=== PATIENT | male | born 1955 | race Caucasian/White ===

== ENCOUNTER → 2017-04-23 | Outpatient (CLI) | payer OTHER ==
--- NOTE | 2017-04-23 13:17 | Diagnostic Imaging Report ---
PA and lateral views of the chest. INDICATION: Shortness of breath and dyspnea. No prior studies are available for comparison. FINDINGS: The heart is moderately enlarged. There is question of minimal vascular congestion. Mild horizontal opacity in the right lung base is probably related to atelectasis. No effusion or pneumothorax. Flattening of the diaphragms suggestive of hyperinflation. No significant effusion. No pneumothorax. IMPRESSION: Cardiomegaly with question of minimal vascular congestion. Mild opacity in the right lung base is probably atelectasis related. Dictated by: Dictated on workstation # [id number]
== END ==
LOC: RAD 10:29
PROVIDERS: ATTEND Nurse Practitioner Family
DX: I51.7 Cardiomegaly (principal); I63.9 Cerebral infarction, unspecified; R06.00 Dyspnea, unspecified; Z72.0 Tobacco use
CPT/HCPCS: 71020

== ENCOUNTER 2017-05-01 14:15 | Outpatient (CLI) | payer BC | END 2017-05-01 14:29 | disposition home or self-care (01) | LOC: SLEEP 14:15 | PROVIDERS: ATTEND Nurse Practitioner Family | DX: G47.10 Hypersomnia, unspecified (principal); G47.50 Parasomnia, unspecified ==

== ENCOUNTER → 2017-05-01 | Outpatient (CLI) | payer BC, OTHER ==
[~2017-05-01] MED LIST: RT-ALBUTEROL SULF 2.5 MG/3 ML PRE-MIX VIAL IH ONE
== END ==
LOC: RT 14:18
PROVIDERS: ATTEND Nurse Practitioner Family
DX: R06.00 Dyspnea, unspecified (principal); I63.9 Cerebral infarction, unspecified; Z72.0 Tobacco use
CPT/HCPCS: 94060; 94640; 94726; 94729

== ENCOUNTER 2017-06-19 17:45 | Emergency (ER) | payer OTHER ==
[~2017-06-19] VITALS: Ht 167.6 cm; Wt 122.5 kg
--- NOTE | 2017-06-19 18:18 | ED Chest Pain ---
General Chief Complaint: Chest Wall/Rib Pain Stated Complaint: RIB AND BACK PAIN Source: patient Exam Limitations: no limitations History of Present Illness Time seen by provider: 18:06 Initial Comments Patient has ER by private conveyance with chief complaint the past 3 weeks he has had progressively worsening, intermittent, sharp left upper quadrant/left lower chest pains worse on movement, deep inspiration or when he presses and on his side. He says he's had a history of stroke 3 months ago and started a cholesterol medicine at that time and is afraid that the cholesterol medicines causing his pain because he saw side effects can cause muscle thousand's. He uses Flexeril which did not help as well as Tylenol which did not help. The pain is intermittent however it is getting worse and more frequent. He said he went saw his doctor today for and they did not do any lab or workup but told him to the ER if it persists. He denies any nausea, fevers, chills, sweats however couple weeks ago he did have a bad cold and coughing up some phlegm but got over that about a week. He also recently stopped smoking 3 months ago but has continuously been coughing up some phlegm especially in the morning since that time. He does not feel his cough is any worse now than it was before his cold. He has no shortness of breath. Uses CPAP sleep at night. Is not routinely on oxygen at home. Allergies and Home Medications Allergies Coded Allergies: Penicillins (Unverified Allergy, Unknown, RASH, 05/01/17) Review of Systems Constitutional: chills, No diaphoresis, No fever, malaise EENTM: No Blurred Vision, No Double Vision Respiratory: Cough, Denies Shortness of Air, Denies Wheezing Cardiovascular: See HPI, Chest Pain Gastrointestinal: See HPI, Denies Abdomen Distended, Abdominal Pain, Denies Nausea, Denies Vomiting Genitourinary: Denies Burning, Denies Discharge Musculoskeletal: No back pain, No joint pain Skin: No pruritus, No rash Past Exruudl-Aunuhi-Wamhrw Hx Patient Social History Alcohol Use: Denies Use Recreational Drug Use: No Smoking Status: Former Smoker Former Smoker, Quit: Mar 04, 2017 Recent Foreign Travel: No Contact w/Someone Who Travel: No Physical Abuse: No Sexual Abuse: No Mistreated: No Fear: No Surgeries History of Surgeries: Yes (R ARM) Respiratory History of Respiratory Disorde: No Cardiovascular History of Cardiac Disorders: Yes Cardiac Disorders: High Cholesterol, Hypertension Neurological History of Neurological Disord: Yes Neurological Disorders: Stroke Genitourinary History of Genitourinary Disor: No Gastrointestinal History of Gastrointestinal Di: Yes Gastrointestinal Disorders: Gastroesophageal Reflux Musculoskeletal History of Musculoskeletal Dis: No Endocrine History of Endocrine Disorders: No Cancer History of Cancer: No Psychosocial History of Psychiatric Problem: No Suicide Risk Score: 0 Blood Transfusions History of Blood Disorders: No Physical Exam Vital Signs Vital Sign - Last 12Hours 06/19/17 18:08 Temp 97.6 Pulse 89 Resp 20 B/P (MAP) 154/92 (112) Pulse Ox 96 Capillary Refill : Less Than 3 Seconds General Appearance: No Apparent Distress, WD/WN HEENT: PERRL/EOMI, TMs Normal, Normal ENT Inspection, Pharynx Normal (oral mucosa is mildly dry) Neck: Full Range of Motion, Normal Inspection, Supple Respiratory: Lungs Clear, Normal Breath Sounds, No Accessory Muscle Use, No Respiratory Distress, Other (tenderness to palpation over anterior and midaxillary line left side ribs) Cardiovascular: Regular Rate, Rhythm, No Edema, Normal Peripheral Pulses Gastrointestinal: Normal Bowel Sounds, Non Tender, Soft, No Distended, No Guarding Neurologic/Psychiatric: Alert, Oriented x3 Skin: Normal Color, Warm/Dry Progress/Results/Core Measures Results/Orders Lab Results Laboratory Tests Test 06/19/17 18:55 Range/Units White Blood Count 7.7 4.3-11.0 10^3/uL Red Blood Count 5.13 4.35-5.85 10^6/uL Hemoglobin 16.3 13.3-17.7 G/DL Hematocrit 47 40-54 % Mean Corpuscular Volume 91 80-99 FL Mean Corpuscular Hemoglobin 32 25-34 PG Mean Corpuscular Hemoglobin Concent 35 32-36 G/DL Red Cell Distribution Width 13.0 10.0-14.5 % Platelet Count 161 130-400 10^3/uL Mean Platelet Volume 10.4 7.4-10.4 FL Neutrophils (%) (Auto) 66 42-75 % Lymphocytes (%) (Auto) 27 12-44 % Monocytes (%) (Auto) 5 0-12 % Eosinophils (%) (Auto) 2 0-10 % Basophils (%) (Auto) 0 0-10 % Neutrophils # (Auto) 5.1 1.8-7.8 X 10^3 Lymphocytes # (Auto) 2.1 1.0-4.0 X 10^3 Monocytes # (Auto) 0.4 0.0-1.0 X 10^3 Eosinophils # (Auto) 0.1 0.0-0.3 10^3/uL Basophils # (Auto) 0.0 0.0-0.1 10^3/uL Sodium Level 138 135-145 MMOL/L Potassium Level 3.9 3.6-5.0 MMOL/L Chloride Level 101 98-107 MMOL/L Carbon Dioxide Level 25 21-32 MMOL/L Anion Gap 12 5-14 MMOL/L Blood Urea Nitrogen 15 7-18 MG/DL Glucose Level 101 70-105 MG/DL Calcium Level 9.4 8.5-10.1 MG/DL Total Bilirubin 0.6 0.1-1.0 MG/DL Aspartate Amino Transf (AST/SGOT) 22 5-34 U/L Alanine Aminotransferase (ALT/SGPT) 33 0-55 U/L Alkaline Phosphatase 75 40-136 U/L Troponin I < 0.30 <0.30 NG/ML Total Protein 8.6 H 6.4-8.2 GM/DL Albumin 4.3 3.2-4.5 GM/DL My Orders Orders - PRATIMA MORA Cbc With Automated Diff (06/19/17 18:11) Comprehensive Metabolic Panel (06/19/17 18:11) Troponin I (06/19/17 18:11) Chest Pa/Lat (2 View) (06/19/17 18:11) Ekg Tracing (06/19/17 18:11) Vital Signs/I&O Vital Sign - Last 12Hours 06/19/17 18:08 Temp 97.6 Pulse 89 Resp 20 B/P (MAP) 154/92 (112) Pulse Ox 96 Progress Note : Time: 19:20 Progress Note His chest pain is consistent with pleuritic chest pain. It is unlikely that this represents pain is secondary to statin use although we will check a CK. Chest x-ray, troponin some basic labs and if it just seems pleuritic in nature probably steroids area and the chest x-ray does show some right-sided contralateral atelectasis versus infiltrates probably more likely to be atelectasis given his not taking deep breaths secondary to the. Chest pain. Since she cannot tolerate NSAIDs due to his history of stroke and Plavix we will give him some hydrocodone which will also help him by reducing his coughing sleep tonight. ECG Initial ECG Impression Date: Jun 19, 2017 Initial ECG Impression Time: 18:57 Initial ECG Rate: 80 Initial ECG Rhythm: Normal Sinus Initial ECG Intervals: Normal Initial ECG Impression: Normal Initial ECG Comparisson: No Previous ECG Available Comment Little motion artifact but no ST-T wave elevation or depression. Diagnostic Imaging Diagonstic Imaging: Xray Plain Films/CT/US/NM/MRI: chest Comments VIA [facility]. [place], [place] NAME: [facility] REC#: [id number] PT STATUS: REG ER : 1955 PHYSICIAN: PRATIMA MORA MD ADMIT DATE: 06/19/17/ER Draft Date of Exam:06/19/17 CHEST PA/LAT (2 VIEW) INDICATION: Chest pain. COMPARISON: 04/23/2017. EXAMINATION: Two views of the chest were obtained. FINDINGS: There is flattening of the diaphragms and suggestion of air trapping. Heart size is within normal limits, stable. No vascular congestion. No effusion or pneumothorax. There is likely infrahilar infiltrate on the right, suspicious for pneumonia. Radiographic followup recommended. IMPRESSION: Suspicion for infrahilar infiltrate right lower lobe. Radiographic followup recommended. There is chronic appearing air trapping superimposed with stable upper limits heart size and no overt failure pattern or pleural fluid. Dictated on workstation # [id number] Dict: 06/19/17 1829 Trans: 06/19/17 1834 [facility] [id number] Interpreted by: TRINA OSORIO Electronically signed by: Reviewed: Reviewed by Me Departure Impression Impression: Primary Impression: Anterior pleuritic pain Disposition: 01 HOME, SELF-CARE Condition: Stable Departure-Patient Inst. Decision time for Depature: 19:47 Referrals: NO,LOCAL PHYSICIAN (PCP/Family) Primary Care Physician Patient Instructions: Pleuritic Chest Pain (DC) Add. Discharge Instructions: Tylenol 1000 g every 8 hours, heating pads, stay mobile take deep breaths occasionally. Your pain is caused by irritation to the linings of your lung as evidenced by your examination and x-ray. You do not appear to have a pneumonia however a steroid will help bring down the inflammation since you cannot tolerate NSAIDs such as Aleve, ibuprofen etc. Take two tablets of prednisone daily for 5 days and expect some improvement in the first couple days. May take a few weeks to completely resolve. If you're having increased pain or your cough is keeping you from sleeping then you may use the hydrocodone one tablet every 6 hours as needed. Hycodan we'll increase your risk for constipation and make you drowsy so be careful with long road trips, or operating heavy machinery All discharge instructions reviewed with patient and/or family. Voiced understanding. Scripts Hydrocodone/Acetaminophen (Hydrocodon -Acetaminophen 5-325) 1 Each Tablet 1 EACH PO Q6H Y for BREAKTHROUGH PAIN, #12 TAB 0 Refills Prov: PRATIMA MORA 06/19/17 Prednisone (Prednisone) 20 Mg Tab 40 MG PO DAILY for 5 Days, #10 TAB 0 Refills Prov: PRATIMA MORA 06/19/17 PRATIMA MORA Jun 19, 2017 18:18
--- NOTE | 2017-06-19 18:35 | Diagnostic Imaging Report ---
INDICATION: Chest pain. COMPARISON: 04/23/2017. EXAMINATION: Two views of the chest were obtained. FINDINGS: There is flattening of the diaphragms and suggestion of air trapping. Heart size is within normal limits, stable. No vascular congestion. No effusion or pneumothorax. There is likely infrahilar infiltrate on the right, suspicious for pneumonia. Radiographic followup recommended. IMPRESSION: Suspicion for infrahilar infiltrate right lower lobe. Radiographic followup recommended. There is chronic appearing air trapping superimposed with stable upper limits heart size and no overt failure pattern or pleural fluid. Dictated by: Dictated on workstation # [id number]
[2017-06-19 19:17] LABS: BASOPHILS % (AUTO) 0 % (0-10); EOSINOPHILS # (AUTO) 0.1 10^3/uL (0.0-0.3); EOSINOPHILS % (AUTO) 2 % (0-10); LYMPHOCYTES # (AUTO) 2.1 X 10^3 (1.0-4.0); LYMPHOCYTES % (AUTO) 27 % (12-44); MEAN CORPUSCULAR HEMOGLOBIN 32 PG (25-34); MEAN CORPUSCULAR HGB CONC 35 G/DL (32-36); MEAN CORPUSCULAR VOLUME 91 FL (80-99); MEAN PLATELET VOLUME 10.4 FL (7.4-10.4); MONOCYTES # (AUTO) 0.4 X 10^3 (0.0-1.0); MONOCYTES % (AUTO) 5 % (0-12); NEUTROPHILS # (AUTO) 5.1 X 10^3 (1.8-7.8); NEUTROPHILS % (AUTO) 66 % (42-75); PLATELET COUNT 161 10^3/uL (130-400); RED BLOOD COUNT 5.13 10^6/uL (4.35-5.85); WHITE BLOOD COUNT 7.7 10^3/uL (4.3-11.0)
[2017-06-19 19:36] LABS: ALANINE AMINOTRANSFERASE 33 U/L (0-55); ALBUMIN 4.3 GM/DL (3.2-4.5); ANION GAP 12 MMOL/L (5-14); ASPARTATE AMINO TRANSFERASE 22 U/L (5-34); BILIRUBIN,TOTAL 0.6 MG/DL (0.1-1.0); BLOOD UREA NITROGEN 15 MG/DL (7-18); CALCIUM 9.4 MG/DL (8.5-10.1); CARBON DIOXIDE 25 MMOL/L (21-32); CHLORIDE 101 MMOL/L (98-107); GLUCOSE 101 MG/DL (70-105); POTASSIUM 3.9 MMOL/L (3.6-5.0); SODIUM 138 MMOL/L (135-145); TOTAL PROTEIN 8.6 GM/DL (6.4-8.2)
[2017-06-19 19:42] LABS: TROPONIN I < 0.30 NG/ML (<0.30)
[2017-06-19] MEDS ORDERED: HYDR-3812 PO (19:54)
[2017-06-19] MEDS ORDERED: PRD20T PO (19:54)
[2017-06-19 19:55] LABS: BUN/CREATININE RATIO 15; CREATININE SERUM 0.97 MG/DL (0.60-1.30); GFR ESTIMATED > 60
[2017-06-19 20:12] VITALS: BP 142/89
== END 2017-06-19 20:12 | disposition home or self-care (01) ==
LOC: EDUNIT# 17:45 → ER 17:47
DX: R07.81 Pleurodynia (principal); K21.9 Gastro-esophageal reflux disease without esophagitis; E78.00 Pure hypercholesterolemia, unspecified; I10 Essential (primary) hypertension; Z86.73 Personal history of transient ischemic attack (TIA), and cerebral infarction without residual deficits; Z87.891 Personal history of nicotine dependence
CPT/HCPCS: 36415; 71020; 80053; 84484; 85025; 93005

== ENCOUNTER 2017-08-22 14:20 | Outpatient (RCR) | payer OTHER ==
[~2017-08-22 14:20] MED LIST changes: +ACHD5005 PO; +PRD20T PO; -RT-ALBUTEROL SULF 2.5 MG/3 ML PRE-MIX VIAL IH ONE
== END 2017-10-17 11:43 | disposition home or self-care (01) ==
PROVIDERS: ATTEND Nurse Practitioner
DX: I69.351 Hemiplegia and hemiparesis following cerebral infarction affecting right dominant side (principal); I69.328 Other speech and language deficits following cerebral infarction

== ENCOUNTER 2017-08-22 14:21 | Outpatient (RCR) | payer OTHER | END 2017-08-28 13:45 | disposition home or self-care (01) | PROVIDERS: ATTEND Nurse Practitioner | DX: I69.391 Dysphagia following cerebral infarction (principal) ==

== ENCOUNTER → 2018-11-21 | Outpatient (CLI) | payer OTHER ==
[~2018-11-21] MED LIST changes: +HOLD METFORMIN - RECEIVED CONTRAST 20 ML VIAL IV SCH; +IOHEXOL 350 MG/ML 100 ML (OMNIPAQUE 350) VIAL IV ONE; +NS 250 ML (IVPB) BAG IV ONE
[2018-11-21 11:37] LABS: BUN/CREATININE RATIO 13; GFR ESTIMATED > 60
--- NOTE | 2018-11-21 15:56 | Diagnostic Imaging Report ---
INDICATION: Previous Stroke. Atherosclerotic disease. EXAM: Post IV contrast-enhanced CT angio neck performed with 2-D and 3-D reconstructions. FINDINGS: The visualized anterior and posterior intracranial arterial circulations appeared unremarkable. The vertebral arteries patent codominant and nonfocal. There is a normal branching pattern of the great vessels. In the midsegment of the right common carotid, there is mild eccentric non-stenosing calcified plaque. The left common carotid was patent. There is mixed soft and hard plaque at the carotid bulbs and bifurcations extending into the proximal ICAs. On the left, a combination of soft and hard plaque resulting in 50% luminal stenosis by transverse diameter. On the right, there is severe stenosis about 16 mm beyond the right ICAs origin. There may be only minimal intraluminal opacification and greater than 90% stenosis is present. The length of the stenosis is about a 9 mm. Mid to distal third of the right cervical and left cervical internal carotids showed mild scattered non-stenosing plaques. IMPRESSION: Critical stenosis right cervical ICA 1.5 cm beyond its origin owing to soft greater than hard plaque. More moderate stenosis, left proximal ICA. Posterior circulation appeared intact. Dictated by: Dictated on workstation # [id number]
== END ==
LOC: RAD 10:44
PROVIDERS: ATTEND Internal Medicine Cardiovascular Disease
DX: I65.23 Occlusion and stenosis of bilateral carotid arteries (principal)
CPT/HCPCS: 36415; 70498; 82565; 84520

== ENCOUNTER → 2018-11-21 | Outpatient (CLI) | payer OTHER ==
[~2018-11-21] MED LIST changes: -HOLD METFORMIN - RECEIVED CONTRAST 20 ML VIAL IV SCH; -IOHEXOL 350 MG/ML 100 ML (OMNIPAQUE 350) VIAL IV ONE; -NS 250 ML (IVPB) BAG IV ONE
[2018-11-21 12:03] LABS: ABG BASE EXCESS 6.4 MMOL/L (-2.5-2.5); ABG OXYGEN SATURATION 93 % (94-100); ABG PCO2 47 MMHG (35-45); ABG PH 7.43 (7.37-7.43); ABG PO2 62 MMHG (79-93); ABG TCO2 32.5 MMOL/L (21.0-31.0); ALLENS TEST YES-POS; INSPIRED O2 ROOM AIR; PATIENT TEMP 96.4; VENTILATOR NO
== END ==
LOC: RT 11:04
PROVIDERS: ATTEND Nurse Practitioner Family
DX: J98.4 Other disorders of lung (principal); I63.9 Cerebral infarction, unspecified; R06.00 Dyspnea, unspecified; G47.33 Obstructive sleep apnea (adult) (pediatric); G47.10 Hypersomnia, unspecified; Z72.0 Tobacco use
CPT/HCPCS: 36600; 82805

== ENCOUNTER → 2018-12-01 | Outpatient (CLI) | payer OTHER | LOC: CARD 11:47 | PROVIDERS: ATTEND Internal Medicine Cardiovascular Disease | DX: R07.9 Chest pain, unspecified (principal); I10 Essential (primary) hypertension; E78.2 Mixed hyperlipidemia; J44.9 Chronic obstructive pulmonary disease, unspecified; G47.33 Obstructive sleep apnea (adult) (pediatric) | CPT/HCPCS: 93306 ==

== ENCOUNTER → 2018-12-03 | Outpatient (CLI) | payer OTHER ==
[~2018-12-03] VITALS: Ht 167.6 cm; Wt 94.8 kg
[~2018-12-03] MED LIST changes: +CATHETER FLUSH 10 ML SYR IV PRN; +REGADENOSON 0.4 MG/5 ML SYR (LEXISCAN) IV ONE
[2018-12-03 09:20] VITALS: BP 169/86
--- NOTE | 2018-12-03 16:58 | STRESS TEST ---
DATE OF SERVICE: 12/03/2018 LEXISCAN MYOVIEW STRESS TEST REFERRING PHYSICIAN: Agatha PALMER. Baseline heart rate is 80, baseline blood pressure was 63/92. Baseline EKG is sinus rhythm with no ischemic changes. In summary, the patient was injected with 9.85 mCi of technetium-99 Myoview and the resting images were obtained. Then, the patient received 0.4 mg of Lexiscan followed by 28.5 mCi of technetium-99 Myoview. Throughout the test, there were no EKG changes. The resting and stress images were reviewed and compared in the short axis, horizontal long axis, and vertical long axis views. Review of the images showed breast attenuation affecting the quality of the images, there is mild decreased uptake involving the mid to apical anterior wall and anterolateral wall. SSS is 5, SDS 5, TID value 1.05. On the gated images, the left ventricle appeared to be in normal size with normal contractility. Calculated ejection fraction 56%. CONCLUSION: 1. The patient tolerated Lexiscan well. 2. Breast attenuation affecting the quality of the images with mild decreased uptake at the mid to apical anterior wall and anterolateral wall with subtle reversibility. 3. Normal left ventricular size with normal contractility. Calculated ejection fraction 56%. Job ID: [id number] DocumentID: [id number] Dictated Date: 12/03/2018 16:44:53 Dress Operator Date: 12/03/2018 16:57:54 Dictated By: SPENCER BHATT MD
== END ==
LOC: CARD 07:10
PROVIDERS: ATTEND Internal Medicine Cardiovascular Disease
DX: R07.9 Chest pain, unspecified (principal); I10 Essential (primary) hypertension; E78.2 Mixed hyperlipidemia; J44.9 Chronic obstructive pulmonary disease, unspecified; G47.33 Obstructive sleep apnea (adult) (pediatric)
CPT/HCPCS: 78452; 93017

== ENCOUNTER → 2019-02-12 | Outpatient (CLI) | payer OTHER ==
[~2019-02-12] MED LIST changes: +AMLO10TA7 PO; +ASPI-586 PO; +ATEN50TA PO; +ATOR80TA76 PO; +BUPR-168 PO; +CLOP75TA28 PO; +CYCL10TA9 PO; +FINA5TAB6 PO; +GABA300S2 PO; +HOLD METFORMIN - RECEIVED CONTRAST 20 ML VIAL IV SCH; +HYDR25TA4 PO; +IOHEXOL 350 MG/ML 100 ML (OMNIPAQUE 350) VIAL IV ONE; +NS 100 ML (IVPB) BAG IV ONE; +PANT20TA3 PO; -REGADENOSON 0.4 MG/5 ML SYR (LEXISCAN) IV ONE; +TAMS0.4C98 PO
[2019-02-12 10:00] LABS: BUN/CREATININE RATIO 13; CREATININE SERUM 0.96 MG/DL (0.60-1.30); GFR ESTIMATED > 60
--- NOTE | 2019-02-12 10:52 | Diagnostic Imaging Report ---
PROCEDURE: CT chest with contrast only. TECHNIQUE: Multiple contiguous axial images were obtained through the chest after administration of intravenous contrast. Auto Exposure Controls were utilized during the CT exam to meet ALARA standards for radiation dose reduction. INDICATION: Cardiac stent placement. COMPARISON: No prior CT chest studies are available for comparison. FINDINGS: No axillary lymphadenopathy is seen. There are small lymph nodes throughout the mediastinum but no pathologically enlarged nodes are seen. No hilar lymphadenopathy is detected. No pericardial or pleural fluid is identified. No pulmonary mass or infiltrate is seen. There is some minimal scarring or atelectasis in the lingula and left lower lobe. The upper abdomen is unremarkable. Bony structures are nonacute. IMPRESSION: Essentially unremarkable CT of the chest. No acute features detected. Dictated by: Dictated on workstation # [id number]
== END ==
LOC: RAD 09:28
PROVIDERS: ATTEND Nurse Practitioner Family
DX: J98.4 Other disorders of lung (principal); G47.33 Obstructive sleep apnea (adult) (pediatric); G47.50 Parasomnia, unspecified; G47.10 Hypersomnia, unspecified; R06.00 Dyspnea, unspecified; Z95.5 Presence of coronary angioplasty implant and graft; Z72.0 Tobacco use
CPT/HCPCS: 36415; 71260; 82565; 84520

== ENCOUNTER 2019-08-04 15:31 | Emergency (ER) | payer OTHER ==
[~2019-08-04] VITALS: Ht 170.1 cm; Wt 126.0 kg
[~2019-08-04 15:31] MED LIST changes: -CATHETER FLUSH 10 ML SYR IV PRN; -HOLD METFORMIN - RECEIVED CONTRAST 20 ML VIAL IV SCH; -IOHEXOL 350 MG/ML 100 ML (OMNIPAQUE 350) VIAL IV ONE; -NS 100 ML (IVPB) BAG IV ONE; -TAMS0.4C98 PO; +TMSL.4C PO
[2019-08-04] MEDS ORDERED: KETOROLAC 30 MG/ML VIAL IVP ONE (16:45)
[2019-08-04] MEDS ORDERED: RT-ALBUTEROL/IPRATROPIUM 3 ML (DUONEB) VIAL INH ONE (16:45)
[2019-08-04 16:48] LABS: BASOPHILS % (AUTO) 0 % (0-10); EOSINOPHILS # (AUTO) 0.1 10^3/uL (0.0-0.3); EOSINOPHILS % (AUTO) 2 % (0-10); HEMATOCRIT 48 % (40-54); HEMOGLOBIN 16.1 G/DL (13.3-17.7); LYMPHOCYTES # (AUTO) 2.1 X 10^3 (1.0-4.0); LYMPHOCYTES % (AUTO) 31 % (12-44); MEAN CORPUSCULAR HEMOGLOBIN 30 PG (25-34); MEAN CORPUSCULAR HGB CONC 34 G/DL (32-36); MEAN CORPUSCULAR VOLUME 89 FL (80-99); MEAN PLATELET VOLUME 10.8 FL (7.4-10.4); MONOCYTES # (AUTO) 0.4 X 10^3 (0.0-1.0); MONOCYTES % (AUTO) 6 % (0-12); NEUTROPHILS # (AUTO) 4.2 X 10^3 (1.8-7.8); NEUTROPHILS % (AUTO) 61 % (42-75); PLATELET COUNT 183 10^3/uL (130-400); WHITE BLOOD COUNT 6.8 10^3/uL (4.3-11.0)
[2019-08-04 16:59] LABS: ALANINE AMINOTRANSFERASE 32 U/L (0-55); ALBUMIN 4.4 GM/DL (3.2-4.5); ALKALINE PHOSPHATASE 84 U/L (40-136); BILIRUBIN,TOTAL 0.5 MG/DL (0.1-1.0); BUN/CREATININE RATIO 16; CALCIUM 9.3 MG/DL (8.5-10.1); CARBON DIOXIDE 27 MMOL/L (21-32); CHLORIDE 100 MMOL/L (98-107); CREATININE SERUM 1.04 MG/DL (0.60-1.30); GFR ESTIMATED > 60; GLUCOSE 94 MG/DL (70-105); POTASSIUM 4.1 MMOL/L (3.6-5.0); SODIUM 136 MMOL/L (135-145); TOTAL PROTEIN 8.1 GM/DL (6.4-8.2)
--- NOTE | 2019-08-04 17:36 | Diagnostic Imaging Report ---
INDICATION: Congestion, cough. COMPARISON: December 17, 2018. TECHNIQUE: Two radiographs of the chest dated August 04, 2019. FINDINGS: The cardiac silhouette is enlarged, though stable. No significant pulmonary vascular congestion. Developing mild bibasilar interstitial opacities. No significant pleural effusion. No pneumothorax. Scattered osseous degenerative changes. Prominent multilevel anterior osteophytes are present. IMPRESSION: Developing mild bibasilar pneumonitis and/or atelectasis. Borderline cardiomegaly without overt congestive heart failure. Dictated by: Dictated on workstation # [id number]
--- NOTE | 2019-08-04 17:39 | ED Cough/URI ---
General Chief Complaint: Respiratory Problems Stated Complaint: CONGESTED,LUNGS HURT Nursing Triage Note: AMB TO ED WITH CONESTION WHEN COUGHING CHEST HURTS ONSET 4 DAYS AGO. Sepsis Screen: No Definite Risk Source: patient Exam Limitations: no limitations History of Present Illness Date Seen by Provider: Aug 04, 2019 Time Seen by Provider: 14:30 Initial Comments To ER with a four-day history of chest congestion, nonproductive cough seems worse when laying flat. Timing/Duration: just prior to arrival Severity/Quality: dry cough Associated Symptoms: cough, shortness of breath Allergies and Home Medications Allergies Coded Allergies: Penicillins (Unverified Allergy, Unknown, RASH, 05/01/17) Home Medications Amlodipine Besylate 10 Mg Tablet, 10 MG PO DAILY, (Reported) Aspirin 81 Mg Tablet.dr, 81 MG PO DAILY, (Reported) Atenolol 50 Mg Tablet, 25 MG PO DAILY, (Reported) TAKE HALF TAB Atorvastatin Calcium 80 Mg Tablet, 20 MG PO HS, (Reported) Bupropion HCl 75 Mg Tablet, 75 MG PO DAILY, (Reported) Clopidogrel Bisulfate 75 Mg Tablet, 75 MG PO DAILY, (Reported) Cyclobenzaprine HCl 10 Mg Tablet, 10 MG PO HS PRN for MUSCLE SPASMS, (Reported) Finasteride 5 Mg Tablet, 5 MG PO DAILY, (Reported) Gabapentin 300 Mg/6 Ml Solution, 300 MG PO BID, (Reported) Hydrochlorothiazide 25 Mg Tablet, 25 MG PO DAILY, (Reported) Pantoprazole Sodium 20 Mg Tablet.dr, 20 MG PO DAILY, (Reported) Tamsulosin HCl 0.4 Mg Cap, 0.4 MG PO BID, (Reported) Patient Home Medication List Home Medication List Reviewed: Yes Review of Systems Review of Systems Constitutional: see HPI EENTM: see HPI Respiratory: see HPI, cough, short of breath Genitourinary: no symptoms reported Musculoskeletal: no symptoms reported Skin: no symptoms reported Psychiatric/Neurological: No Symptoms Reported Past Qpwaxgh-Qcndui-Xqvixm Hx Patient Social History Alcohol Use: Denies Use Recreational Drug Use: Yes Smoking Status: Former Smoker Type Used: Cigarettes Former Smoker, Quit: Mar 04, 2017 Recent Foreign Travel: No Contact w/Someone Who Travel: No Recent Infectious Disease Expo: No Physical Abuse: No Sexual Abuse: No Mistreated: No Fear: No Past Medical History Surgeries: Yes (R ARM TRAUMA, MULTIPLE SURGERIES) Orthopedic Respiratory: Yes Sleep Apnea, COPD Cardiac: Yes (STENT ) High Cholesterol, Hypertension Neurological: Yes (CVA 03/2017--LEFT SIDE WEAKNESS--RESOLVED) Stroke Genitourinary: No Gastrointestinal: Yes Gastroesophageal Reflux Musculoskeletal: No Endocrine: Yes (OBESITY) Cancer: No Psychosocial: No Integumentary: No Blood Disorders: No Physical Exam Vital Signs - First Documented 08/04/19 15:45 Temp 37.0 Pulse 81 Resp 18 B/P (MAP) 111/65 (80) Pulse Ox 97 O2 Delivery Room Air Capillary Refill : Less Than 3 Seconds Height: 5'6.00" Weight: 209lbs. 0.0oz. 94.343611ly; 43.00 BMI Method:Stated General Appearance: WD/WN, no apparent distress, obese Eyes: Bilateral Eye Normal Inspection, Bilateral Eye PERRL, Bilateral Eye EOMI Neck: non-tender, full range of motion Respiratory: no respiratory distress, no accessory muscle use Gastrointestinal: normal bowel sounds, non tender, soft Neurologic/Psychiatric: alert, normal mood/affect, oriented x 3 Skin: normal color, warm/dry Progress/Results/Core Measures Suspected Sepsis Recent Fever Within 48 Hours: No Infection Criteria Present: None New/Unexplained Altered Menta: No Sepsis Screen: No Definite Risk SIRS Temperature: Pulse: 81 Respiratory Rate: 18 Laboratory Tests 08/04/19 16:25: White Blood Count 6.8 Blood Pressure 111 /65 Mean: 80 Laboratory Tests 08/04/19 16:25: Creatinine 1.04, Platelet Count 183, Total Bilirubin 0.5 Results/Orders Lab Results Laboratory Tests Test 08/04/19 16:25 Range/Units White Blood Count 6.8 4.3-11.0 10^3/uL Red Blood Count 5.32 4.35-5.85 10^6/uL Hemoglobin 16.1 13.3-17.7 G/DL Hematocrit 48 40-54 % Mean Corpuscular Volume 89 80-99 FL Mean Corpuscular Hemoglobin 30 25-34 PG Mean Corpuscular Hemoglobin Concent 34 32-36 G/DL Red Cell Distribution Width 13.0 10.0-14.5 % Platelet Count 183 130-400 10^3/uL Mean Platelet Volume 10.8 H 7.4-10.4 FL Neutrophils (%) (Auto) 61 42-75 % Lymphocytes (%) (Auto) 31 12-44 % Monocytes (%) (Auto) 6 0-12 % Eosinophils (%) (Auto) 2 0-10 % Basophils (%) (Auto) 0 0-10 % Neutrophils # (Auto) 4.2 1.8-7.8 X 10^3 Lymphocytes # (Auto) 2.1 1.0-4.0 X 10^3 Monocytes # (Auto) 0.4 0.0-1.0 X 10^3 Eosinophils # (Auto) 0.1 0.0-0.3 10^3/uL Basophils # (Auto) 0.0 0.0-0.1 10^3/uL Sodium Level 136 135-145 MMOL/L Potassium Level 4.1 3.6-5.0 MMOL/L Chloride Level 100 98-107 MMOL/L Carbon Dioxide Level 27 21-32 MMOL/L Anion Gap 9 5-14 MMOL/L Blood Urea Nitrogen 17 7-18 MG/DL Creatinine 1.04 0.60-1.30 MG/DL Estimat Glomerular Filtration Rate > 60 BUN/Creatinine Ratio 16 Glucose Level 94 70-105 MG/DL Calcium Level 9.3 8.5-10.1 MG/DL Corrected Calcium 9.0 8.5-10.1 MG/DL Total Bilirubin 0.5 0.1-1.0 MG/DL Aspartate Amino Transf (AST/SGOT) 20 5-34 U/L Alanine Aminotransferase (ALT/SGPT) 32 0-55 U/L Alkaline Phosphatase 84 40-136 U/L Troponin I < 0.028 <0.028 NG/ML B-Type Natriuretic Peptide 15.5 <100.0 PG/ML Total Protein 8.1 6.4-8.2 GM/DL Albumin 4.4 3.2-4.5 GM/DL My Orders Orders - BRADY WEATHERS APRN BNP (08/04/19 16:42) Troponin I (08/04/19 16:42) Ekg Tracing (08/04/19 16:42) Cbc With Automated Diff (08/04/19 16:42) Comprehensive Metabolic Panel (08/04/19 16:42) Ed Iv/Invasive Line Start (08/04/19 16:42) Ketorolac Injection (Toradol Injection) (08/04/19 16:45) Chest Pa/Lat (2 View) (08/04/19 16:42) Albuterol/Ipra Inhalation Soln (Duoneb I (08/04/19 16:45) Svn Small Volume Nebulizer (08/04/19 16:42) Medications Given in ED Current Medications Medications Dose Ordered Sig/Shailesh Route Start Time Stop Time Status Last Admin Dose Admin Albuterol/ Ipratropium 3 ml ONCE ONCE INH 08/04/19 16:45 08/04/19 16:46 DC 08/04/19 16:56 3 ML Ketorolac Tromethamine 30 mg ONCE ONCE IVP 08/04/19 16:45 08/04/19 16:46 DC 08/04/19 16:53 30 MG Vital Signs/I&O 08/04/19 08/04/19 15:45 16:56 Temp 37.0 Pulse 81 Resp 18 B/P (MAP) 111/65 (80) Pulse Ox 97 98 O2 Delivery Room Air Room Air Capillary Refill : Less Than 3 Seconds Blood Pressure Mean: 80 Departure Impression Primary Impression: Bronchitis Disposition: 01 HOME, SELF-CARE Condition: Stable Departure-Patient Inst. Decision time for Depature: 17:41 Referrals: NO,LOCAL PHYSICIAN (PCP) Primary Care Physician LOAN RESENDEZ (Family) Primary Care Physician Patient Instructions: Acute Bronchitis Add. Discharge Instructions: 1. Antibiotics and steroids as directed 2. Return to ER for any concerns 3. Follow-up with your doctor next week All discharge instructions reviewed with patient and/or family. Voiced understanding. Scripts Prednisone (Prednisone) 20 Mg Tab 40 MG PO DAILY, #8 TAB 0 Refills Prov: BRADY WEATHERS REPORTING MANAGER 08/04/19 Azithromycin (Azithromycin) 250 Mg Tablet 250 MG PO UD, #6 TAB TAKE 2 TABLETS ON DAY ONE THEN TAKE 1 TABLET DAILY FOR FOUR MORE DAYS Prov: BRADY WEATHERS REPORTING MANAGER 08/04/19 BRADY WEATHERS REPORTING MANAGER Aug 04, 2019 17:39
[2019-08-04] MEDS ORDERED: PRD20T PO (17:42)
[2019-08-04] MEDS ORDERED: AZIT250T12 PO (17:42)
[2019-08-04 17:59] VITALS: BP 111/65
== END 2019-08-04 18:00 | disposition home or self-care (01) ==
LOC: EDUNIT# 15:31 → ER 15:32
DX: J40 Bronchitis, not specified as acute or chronic (principal); I10 Essential (primary) hypertension; E78.00 Pure hypercholesterolemia, unspecified; K21.9 Gastro-esophageal reflux disease without esophagitis; J44.0 Chronic obstructive pulmonary disease with (acute) lower respiratory infection; E66.9 Obesity, unspecified; Z86.73 Personal history of transient ischemic attack (TIA), and cerebral infarction without residual deficits; Z95.5 Presence of coronary angioplasty implant and graft; Z88.0 Allergy status to penicillin; Z79.82 Long term (current) use of aspirin; Z79.02 Long term (current) use of antithrombotics/antiplatelets; Z87.891 Personal history of nicotine dependence; Z68.41 Body mass index [BMI] 40.0-44.9, adult
CPT/HCPCS: 36415; 71046; 80053; 83880; 84484; 85025; 93005; 94640

== ENCOUNTER → 2020-07-05 | Outpatient (CLI) | payer OTHER ==
[~2020-07-05] MED LIST changes: +AMLO-251 PO; -AMLO10TA7 PO; +AZIT250T12 PO; +PANT20TA18 PO; -PANT20TA3 PO
--- NOTE | 2020-07-05 12:52 | Diagnostic Imaging Report ---
EXAMINATION: CT Chest without contrast (lung screening). TECHNIQUE: Multiple contiguous axial images were obtained through the chest without the use of intravenous contrast according to lung cancer screening protocol. All CT scans use one or more of the following dose optimizing techniques: automated exposure control, MA and/or KvP adjustment based on a patient size and exam type, or iterative reconstruction. HISTORY: 63 pack year history of smoking. COMPARISON: CT chest 02/12/2019. FINDINGS: Thyroid: The thyroid is normal. Mediastinum: Heart size is normal without significant pericardial effusion. Calcifications of the aorta and coronary vessels. Thoracic aorta is normal in caliber. No suspicious lymphadenopathy. Lungs and airways: Emphysematous changes of the lungs without consolidation, pleural effusion, or pneumothorax. Bibasilar dependent atelectasis. No suspicious pulmonary nodule. The airways are normal. Upper abdomen: The subphrenic structures are normal. Musculoskeletal: Degenerative changes of the spine without suspicious osseous lesion or compression fracture. IMPRESSION: 1. No suspicious pulmonary nodules. Recommend continued annual low-dose CT screening. 2. Emphysema. LUNG-RADS CATEGORY: 1 MODIFIER: None. Dictated by: Dictated on workstation # [id number]
== END ==
LOC: RAD 11:10
PROVIDERS: ATTEND Nurse Practitioner Family
DX: J43.9 Emphysema, unspecified (principal); Z87.891 Personal history of nicotine dependence
CPT/HCPCS: 71271

== ENCOUNTER 2022-07-27 17:53 | Emergency (ER) | payer OTHER ==
[~2022-07-27] VITALS: Ht 172.7 cm; Wt 130.6 kg
[~2022-07-27 17:53] MED LIST changes: +CYCL10TA25 PO; -CYCL10TA9 PO
--- NOTE | 2022-07-27 18:09 | ED Respiratory ---
General Chief Complaint: Respiratory Problems Stated Complaint: SOA Nursing Triage Note: PT AMB TO [facility] 6 WITH COMPLAINT OF SOA, SHOULDER PAIN, ABD PAIN, NAUSEA. DENIES CP. STATES SYMPTOMS STARTED ABOUT AN HOUR AGO. Source: patient Exam Limitations: no limitations History of Present Illness Date Seen by Provider: Jul 27, 2022 Time Seen by Provider: 17:57 Initial Comments 66-year-old male with chronic respiratory failure on 2 L baseline oxygen, COPD, hypertension, hyperlipidemia, previous CVA, CAD (last cath in 2019 with no intervention needed) coming in due to shortness of breath and left shoulder pain. Shortness of breath has been ongoing for weeks with some cough and congestion which is unchanged. The left shoulder pain started a couple hours ago, constant, throbbing, nothing really seems to make better or worse. Denies really having this pain before. Denies ever having a heart attack or stents in his heart. Had one baby aspirin this morning and did take his Plavix. Denies any prior history of DVT or PE, denies any asymmetric lower extremity swelling or pain, denies any recent surgery, hemoptysis, fever, chills, focal weakness or numbness, nausea, vomiting, diarrhea, or any other concerns Allergies and Home Medications Allergies Coded Allergies: Penicillins (Unverified Allergy, Unknown, RASH, 05/01/17) Patient Home Medication List Home Medication List Reviewed: Yes Amlodipine Besylate (Amlodipine Besylate) 10 Mg Tablet, 10 MG PO DAILY, (Reporte d) Entered as Reported by: GARCÍA DELGADO on 12/17/18 1233 Aspirin (Aspir 81) 81 Mg Tablet.dr, 81 MG PO DAILY, (Reported) Entered as Reported by: GARCÍA DELGADO on 12/17/18 1224 Atenolol (Atenolol) 50 Mg Tablet, 25 MG PO DAILY, (Reported) Entered as Reported by: GARCÍA DELGADO on 12/17/18 1224 Atorvastatin Calcium (Atorvastatin Calcium) 80 Mg Tablet, 20 MG PO HS, (Reported) Entered as Reported by: GARCÍA DELGADO on 12/17/18 1233 Azithromycin (Azithromycin) 250 Mg Tablet, 250 MG PO UD Prescribed by: BRADY WEATHERS on 08/04/19 1742 Bupropion HCl (Bupropion HCl) 75 Mg Tablet, 75 MG PO DAILY, (Reported) Entered as Reported by: GARCÍA DELGADO on 12/17/18 1224 Clopidogrel Bisulfate (Clopidogrel) 75 Mg Tablet, 75 MG PO DAILY, (Reported) Entered as Reported by: GARCÍA DELGADO on 12/17/18 1233 Cyclobenzaprine HCl (Cyclobenzaprine HCl) 10 Mg Tablet, 10 MG PO HS PRN for MUSCLE SPASMS, (Reported) Entered as Reported by: GARCÍA DELGADO on 12/17/18 1233 Doxycycline Hyclate (Doxycycline Hyclate) 100 Mg Tablet, 100 MG PO BID Prescribed by: PRICILA MARTINEZ on 07/27/221920 Finasteride (Finasteride) 5 Mg Tablet, 5 MG PO DAILY, (Reported) Entered as Reported by: GARCÍA DELGADO on 12/17/18 1233 Furosemide (Lasix) 40 Mg Tablet, 40 MG PO DAILY Prescribed by: PRICILA MARTINEZ on 07/27/221920 Gabapentin (Gabapentin) 300 Mg/6 Ml Solution, 300 MG PO BID, (Reported) Entered as Reported by: GARCÍA DELGADO on 12/17/18 1224 Hydrochlorothiazide (Hydrochlorothiazide) 25 Mg Tablet, 25 MG PO DAILY, (Reported) Entered as Reported by: GARCÍA DELGADO on 12/17/18 1224 Pantoprazole Sodium (Pantoprazole Sodium) 20 Mg Tablet.dr, 20 MG PO DAILY, (Reported) Entered as Reported by: GARCÍA DELGADO on 12/17/18 1233 Potassium Chloride (Potassium Chloride) 20 Meq Tablet.er, 20 MEQ PO DAILY Prescribed by: PRICILA MARTINEZ on 07/27/221920 Prednisone (Prednisone) 20 Mg Tab, 40 MG PO DAILY Prescribed by: BRADY WEATHERS on 08/04/19 174 Tamsulosin HCl (Flomax) 0.4 Mg Cap, 0.4 MG PO BID, (Reported) Entered as Reported by: GARCÍA DELGADO on 12/17/18 1233 Review of Systems Review of Systems Constitutional: No fever EENTM: nose congestion Respiratory: cough, short of breath Cardiovascular: No chest pain Gastrointestinal: No abdominal pain Genitourinary: no symptoms reported Musculoskeletal: no symptoms reported Skin: no symptoms reported Psychiatric/Neurological: No Symptoms Reported Hematologic/Lymphatic: No Symptoms Reported Past Hdscoye-Zovjkq-Qyqhue Hx Patient Social History Tobacco Use?: No Smoking Status: Former Smoker Use of E-Cig and/or Vaping dev: No Substance use?: No Alcohol Use?: No Pt feels they are or have been: No Immunizations Up To Date Influenza Vaccine Up-to-Date: No; Not Current First/Initial COVID19 Vaccinat: NO Past Medical History Surgeries: Yes (R ARM TRAUMA, MULTIPLE SURGERIES) Orthopedic Respiratory: Yes Sleep Apnea, COPD Cardiac: Yes (STENT ) High Cholesterol, Hypertension Neurological: Yes (CVA 03/2017--LEFT SIDE WEAKNESS--RESOLVED) Stroke Genitourinary: No Gastrointestinal: Yes Gastroesophageal Reflux Musculoskeletal: No Endocrine: Yes (OBESITY) Cancer: No Psychosocial: No Integumentary: No Blood Disorders: No Physical Exam Vital Signs - First Documented 07/27/22 17:55 Temp 36.2 Pulse 77 Resp 22 B/P (MAP) 179/88 (118) Pulse Ox 92 O2 Delivery Room Air O2 Flow Rate 3.00 Capillary Refill : Less Than 3 Seconds Height: 5'6.00" Weight: 209lbs. 0.0oz. 94.628195pm; 43.00 BMI Method:Stated General Appearance: WD/WN, no apparent distress Eyes: Bilateral Eye Normal Inspection HEENT: PERRL/EOMI, normal ENT inspection, pharynx normal Neck: non-tender, full range of motion, supple, normal inspection Respiratory: chest non-tender, lungs clear, no respiratory distress, no accessory muscle use, wheezing, expiration Cardiovascular: regular rate, rhythm, no murmur Gastrointestinal: normal bowel sounds, non tender, soft; No distended, No guarding, No rebound Extremities: normal range of motion, non-tender, no calf tenderness, normal capillary refill, pedal edema Neurologic/Psychiatric: no motor/sensory deficits, alert, normal mood/affect Skin: normal color, warm/dry Progress/Results/Core Measures Suspected Sepsis SIRS Temperature: Pulse: 77 Respiratory Rate: 22 Laboratory Tests 07/27/22 18:05: White Blood Count 6.9 Blood Pressure 179 /88 Mean: 118 Laboratory Tests 07/27/22 18:05: Creatinine 0.84, INR Comment 0.9, Platelet Count 157, Total Bilirubin 0.6 Results/Orders Lab Results Laboratory Tests Test 07/27/22 17:59 07/27/22 18:05 Range/Units Influenza Type A (RT-PCR) Not Detected Not Detecte Influenza Type B (RT-PCR) Not Detected Not Detecte SARS-CoV-2 RNA (RT-PCR) Not Detected Not Detecte White Blood Count 6.9 4.3-11.0 10^3/uL Red Blood Count 5.65 H 4.30-5.52 10^6/uL Hemoglobin 17.0 13.3-17.7 g/dL Hematocrit 50 40-54 % Mean Corpuscular Volume 89 80-99 fL Mean Corpuscular Hemoglobin 30 25-34 pg Mean Corpuscular Hemoglobin Concent 34 32-36 g/dL Red Cell Distribution Width 12.7 10.0-14.5 % Platelet Count 157 130-400 10^3/uL Mean Platelet Volume 9.7 9.0-12.2 fL Immature Granulocyte % (Auto) 0 % Neutrophils (%) (Auto) 68 42-75 % Lymphocytes (%) (Auto) 23 12-44 % Monocytes (%) (Auto) 7 0-12 % Eosinophils (%) (Auto) 1 0-10 % Basophils (%) (Auto) 1 0-10 % Neutrophils # (Auto) 4.7 1.8-7.8 10^3/uL Lymphocytes # (Auto) 1.6 1.0-4.0 10^3/uL Monocytes # (Auto) 0.5 0.0-1.0 10^3/uL Eosinophils # (Auto) 0.1 0.0-0.3 10^3/uL Basophils # (Auto) 0.0 0.0-0.1 10^3/uL Immature Granulocyte # (Auto) 0.0 0.0-0.1 10^3/uL Prothrombin Time 13.1 12.2-14.7 SEC INR Comment 0.9 0.8-1.4 Activated Partial Thromboplast Time 42 H 24-35 SEC Sodium Level 128 L 135-145 MMOL/L Potassium Level 3.9 3.6-5.0 MMOL/L Chloride Level 89 L 98-107 MMOL/L Carbon Dioxide Level 27 21-32 MMOL/L Anion Gap 12 5-14 MMOL/L Blood Urea Nitrogen 13 7-18 MG/DL Creatinine 0.84 0.60-1.30 MG/DL Estimat Glomerular Filtration Rate 96 BUN/Creatinine Ratio 15 Glucose Level 96 70-105 MG/DL Calcium Level 9.3 8.5-10.1 MG/DL Corrected Calcium 9.2 8.5-10.1 MG/DL Magnesium Level 2.0 1.6-2.4 MG/DL Total Bilirubin 0.6 0.1-1.0 MG/DL Aspartate Amino Transf (AST/SGOT) 16 5-34 U/L Alanine Aminotransferase (ALT/SGPT) 23 0-55 U/L Alkaline Phosphatase 68 40-136 U/L Troponin I < 0.028 <0.028 NG/ML B-Type Natriuretic Peptide 52.1 <100.0 PG/ML Total Protein 7.4 6.4-8.2 GM/DL Albumin 4.1 3.2-4.5 GM/DL Lipase 19 8-78 U/L My Orders Orders - PRICILA MARTINEZ MD Cbc With Automated Diff (07/27/22 18:05) Magnesium (07/27/22 18:05) Chest 1 View, Ap/Pa Only (07/27/22 18:05) Ekg Tracing (07/27/22 18:05) Comprehensive Metabolic Panel (07/27/22 18:05) Protime With Inr (07/27/22 18:05) Partial Thromboplastin Time (07/27/22 18:05) O2 (07/27/22 18:05) Monitor-Rhythm Ecg Trace Only (07/27/22 18:05) Ed Iv/Invasive Line Start (07/27/22 18:05) Lipase (07/27/22 18:05) Bnp [place] (07/27/22 18:05) Troponin I [place] (07/27/22 18:05) Aspirin Chewable Tablet (Baby Aspirin Ch (07/27/22 18:15) Influenza A And B By Pcr (07/27/22 18:05) Covid 19 Inhouse Test (07/27/22 18:05) Albuterol/Ipra Inhalation Soln (Duoneb I (07/27/22 18:15) Furosemide Injection (Lasix Injection) (07/27/22 19:15) Potassium Chloride (Tablet) (K Dur Table (07/27/22 19:15) Ceftriaxone 1 Gm Pre-Mix (Rocephin 1 Gm (07/27/22 19:15) Azithromycin Tablet (Zithromax Tablet) (07/27/22 19:15) Medications Given in ED Current Medications Medications Dose Ordered Sig/Shailesh Route Start Time Stop Time Status Last Admin Dose Admin Albuterol/ Ipratropium 3 ml ONCE ONCE INH 07/27/22 18:15 07/27/22 18:16 DC 07/27/22 18:27 3 ML Aspirin 243 mg ONCE ONCE PO 07/27/22 18:15 07/27/22 18:16 DC 07/27/22 18:16 243 MG Azithromycin 500 mg ONCE ONCE PO 07/27/22 19:15 07/27/22 19:16 DC 07/27/22 19:19 500 MG Ceftriaxone Sodium/Dextrose 50 ml @ 100 mls/hr ONCE ONCE IV 07/27/22 19:15 07/27/22 19:44 DC 07/27/22 19:18 100 MLS/HR Furosemide 40 mg ONCE ONCE IVP 07/27/22 19:15 07/27/22 19:16 DC 07/27/22 19:19 40 MG Potassium Chloride 40 meq ONCE ONCE PO 07/27/22 19:15 07/27/22 19:16 DC 07/27/22 19:19 40 MEQ Vital Signs/I&O 07/27/22 07/27/22 07/27/22 07/27/22 17:55 17:55 18:00 18:27 Temp 36.2 Pulse 77 Resp 22 B/P (MAP) 179/88 (118) Pulse Ox 92 96 93 O2 Delivery Room Air Room Air Nasal Cannula Nasal Cannula O2 Flow Rate 3.00 2.00 2.50 Capillary Refill : Less Than 3 Seconds Blood Pressure Mean: 118 Progress Note : Progress Note 66-year-old male with above history coming in due to shortness of breath and left shoulder pain. The patient's oxygen saturation was in the high 70s on arrival, but he was not wearing his baseline oxygen. He states he wears it at home, but does not have a portable tank. Once he was placed on his normal amount of oxygen, his symptoms improved and his oxygen saturation was in the mid 90s. An IV was placed and basic labs were obtained including cardiac biomarkers. An EKG was obtained and interpreted by me showing no acute ischemic changes. Portable chest x-ray ordered, respiratory viral testing sent as well. On review of the patient's medical records, in 2019 he had an echo done here with a normal ejection fraction and grade 1 diastolic dysfunction. He had a slightly abnormal stress test so he had a cardiac catheterization done shortly after that which no intervention was needed by Dr. Maldonado. Labs were significant for my interpretation a normal white blood cell count, slightly low sodium at 128, normal creatinine, negative troponin, normal BNP, negative flu and COVID testing. Chest x-ray with likely pneumonia and some pulmonary edema. The patient was given IV ceftriaxone, oral azithromycin, IV Lasix, oral potassium. He is on his baseline oxygen and is nontoxic-appearing. I discussed with the patient oral antibiotics at home as well as a course of Lasix until he can get follow-up with his PCP. Patient is agreeable to this. I discussed he needs oxygen while in transport, he states he wants to get all of that done through the [place] and is refusing to allow us to order oxygen for him to go home with today. He states that he was off of it for transport all of the time, and he states that he is "not concerned". I discussed that it is not good for him to be off oxygen and that he could have a serious event. He is not driving home today and does have a friend driving him straight to the house where he will place himself back on the oxygen. Patient is alert and oriented, able to voice back to me the risk and benefits of this decision. He does have capacity to make this decision at this time. I believe he is otherwise stable for discharge with outpatient follow-up. He was sent home with strict return precautions. ECG Initial ECG Impression Date: Jul 27, 2022 Initial ECG Impression Time: 18:02 Initial ECG Rate: 71 Initial ECG Rhythm: Normal Sinus Comment Narrow QRS, normal axis, no significant ST changes or T wave abnormalities Diagnostic Imaging Diagonstic Imaging: Xray (chest) Departure Impression Primary Impression: Pneumonia Qualified Codes: J18.9 - Pneumonia, unspecified organism Additional Impression: Respiratory failure Qualified Codes: J96.11 - Chronic respiratory failure with hypoxia Disposition: 01 HOME, SELF-CARE Condition: Stable Departure-Patient Inst. Decision time for Depature: 19:45 Referrals: LOAN RESENDEZ (PCP) Primary Care Physician Patient Instructions: Pneumonia in Adults Add. Discharge Instructions: It does appear like you have pneumonia and likely coming fluid in your lungs. You will be on antibiotics for the next week. You also will be on a water pill to help you urinate out the extra fluid with a potassium supplement to help with this. Please follow-up with your regular doctor regarding these symptoms especially if you are not improving. Scripts Potassium Chloride (Potassium Chloride) 20 Meq Tablet.er 20 MEQ PO DAILY for 5 Days, #5 TAB Prov: PRICILA MARTINEZ MD 07/27/22 Furosemide (Lasix) 40 Mg Tablet 40 MG PO DAILY for 5 Days, #5 TAB Prov: PRICILA MARTINEZ MD 07/27/22 Doxycycline Hyclate (Doxycycline Hyclate) 100 Mg Tablet 100 MG PO BID for 7 Days, #14 TAB 0 Refills Prov: PRICILA MARTINEZ MD 07/27/22 Work/School Note: Work Release Form Date Seen in the Emergency Department: Jul 27, 2022 Return to Work: Jul 28, 2022 Restrictions: No Restrictions PRICILA MARTINEZ MD Jul 27, 2022 18:09
[2022-07-27 18:12] LABS: BASOPHILS % (AUTO) 1 % (0-10); EOSINOPHILS # (AUTO) 0.1 10^3/uL (0.0-0.3); EOSINOPHILS % (AUTO) 1 % (0-10); HEMATOCRIT 50 % (40-54); LYMPHOCYTES # (AUTO) 1.6 10^3/uL (1.0-4.0); LYMPHOCYTES % (AUTO) 23 % (12-44); MEAN CORPUSCULAR HEMOGLOBIN 30 pg (25-34); MEAN CORPUSCULAR HGB CONC 34 g/dL (32-36); MEAN CORPUSCULAR VOLUME 89 fL (80-99); MEAN PLATELET VOLUME 9.7 fL (9.0-12.2); MONOCYTES # (AUTO) 0.5 10^3/uL (0.0-1.0); MONOCYTES % (AUTO) 7 % (0-12); NEUTROPHILS # (AUTO) 4.7 10^3/uL (1.8-7.8); NEUTROPHILS % (AUTO) 68 % (42-75); PLATELET COUNT 157 10^3/uL (130-400); WHITE BLOOD COUNT 6.9 10^3/uL (4.3-11.0)
[2022-07-27] MEDS ORDERED: ASPIRIN 81 MG CHEW (CHILDREN'S ASA) PO ONE (18:15)
[2022-07-27] MEDS ORDERED: RT-ALBUTEROL/IPRATROPIUM 3 ML (DUONEB) VIAL INH ONE (18:15)
[2022-07-27 18:21] LABS: ALBUMIN 4.1 GM/DL (3.2-4.5)
[2022-07-27 18:22] LABS: POTASSIUM 3.9 MMOL/L (3.6-5.0)
[2022-07-27 18:23] LABS: CALCIUM 9.3 MG/DL (8.5-10.1)
[2022-07-27 18:24] LABS: TOTAL PROTEIN 7.4 GM/DL (6.4-8.2)
[2022-07-27 18:26] LABS: BILIRUBIN,TOTAL 0.6 MG/DL (0.1-1.0); INR 0.9 (0.8-1.4); PROTHROMBIN TIME PATIENT 13.1 SEC (12.2-14.7)
[2022-07-27 18:28] LABS: CREATININE SERUM 0.84 MG/DL (0.60-1.30)
--- NOTE | 2022-07-27 18:46 | Diagnostic Imaging Report ---
INDICATION: Chest pain. COMPARISON: 08/04/2019. TECHNIQUE: Single radiograph of the chest dated July 27, 2022. FINDINGS: The cardiac silhouette is enlarged, increased since the prior examination. Central pulmonary vascular congestion is present, increased since the prior exam. Right basilar interstitial opacities are present. No definite pleural effusion. No pneumothorax. No acute osseous abnormality. IMPRESSION: Cardiomegaly with central pulmonary vascular congestion. Right basilar edema versus infiltrate without large volume pleural effusion. Dictated by: Dictated on workstation # [id number]
[2022-07-27] MEDS ORDERED: cefTRIAXone 1 GM PRE-MIX 50 ML IV ONE (19:15)
[2022-07-27] MEDS ORDERED: FUROSEMIDE 40 MG/4 ML INJ (LASIX) IVP ONE (19:15)
[2022-07-27] MEDS ORDERED: AZITHROMYCIN 250 MG TAB (ZITHROMAX) PO ONE (19:15)
[2022-07-27] MEDS ORDERED: KCL 20 MEQ TAB (K-DUR) PO ONE (19:15)
[2022-07-27] MEDS ORDERED: DOXY100T2 PO (19:21)
[2022-07-27] MEDS ORDERED: FURO-124 PO (19:21)
[2022-07-27] MEDS ORDERED: POTA-51 PO (19:21)
[2022-07-27 20:08] VITALS: BP 157/82
== END 2022-07-27 20:08 | disposition home or self-care (01) ==
LOC: EDUNIT# 17:53 → ER 17:54
DX: J18.9 Pneumonia, unspecified organism (principal); J96.10 Chronic respiratory failure, unspecified whether with hypoxia or hypercapnia; E87.1 Hypo-osmolality and hyponatremia; E66.9 Obesity, unspecified; Z99.81 Dependence on supplemental oxygen; Z87.891 Personal history of nicotine dependence; Z88.0 Allergy status to penicillin; Z20.822 Contact with and (suspected) exposure to COVID-19; Z68.41 Body mass index [BMI] 40.0-44.9, adult
CPT/HCPCS: 36415; 71045; 80053; 83690; 83735; 83880; 84484; 85025; 85610; 85730; 87636; 93005; 93041; 94640

== ENCOUNTER 2022-08-24 13:42 | Emergency (ER) | payer OTHER ==
[~2022-08-24] VITALS: Ht 170 cm; Wt 131.0 kg
[~2022-08-24 13:42] MED LIST changes: +DOXY100T2 PO; +FURO-124 PO; +POTA-51 PO
[2022-08-24] MEDS ORDERED: RT-ALBUTEROL/IPRATROPIUM 3 ML (DUONEB) VIAL INH ONE (14:00)
--- NOTE | 2022-08-24 14:00 | ED General ---
General Stated Complaint: HIGH BLOOD PRESSURE | SOB History of Present Illness Date Seen by Provider: Aug 24, 2022 Time Seen by Provider: 13:59 Initial Comments 66-year-old male presents with shortness of breath. He has a history of chronic shortness of breath but feels like maybe is little bit worse. He reports that he thinks his legs are swollen more than normal. Patient uses oxygen on and off and reports he feels like he has been using a little bit more. Reports he was recently diagnosed and treated for pneumonia and he is just felt weak every since then. Allergies and Home Medications Allergies Coded Allergies: Penicillins (Unverified Allergy, Unknown, RASH, 05/01/17) Patient Home Medication List Home Medication List Reviewed: Yes Amlodipine Besylate (Amlodipine Besylate) 10 Mg Tablet, 10 MG PO DAILY, (Reported) Entered as Reported by: GARCÍA DELGADO on 12/17/18 1233 Aspirin (Aspir 81) 81 Mg Tablet.dr, 81 MG PO DAILY, (Reported) Entered as Reported by: GARCÍA DELGADO on 12/17/18 1224 Atenolol (Atenolol) 50 Mg Tablet, 25 MG PO DAILY, (Reported) Entered as Reported by: GARCÍA DELGADO on 12/17/18 1224 Atorvastatin Calcium (Atorvastatin Calcium) 80 Mg Tablet, 20 MG PO HS, (Reporte d) Entered as Reported by: GARCÍA DELGADO on 12/17/18 1233 Azithromycin (Azithromycin) 250 Mg Tablet, 250 MG PO UD Prescribed by: BRADY WEATHERS on 08/04/19 1742 Azithromycin (Azithromycin) 250 Mg Tablet, 250 MG PO UD Prescribed by: URI TIMMONS on 08/24/22 1549 Bupropion HCl (Bupropion HCl) 75 Mg Tablet, 75 MG PO DAILY, (Reported) Entered as Reported by: GARCÍA DELGADO on 12/17/18 1224 Clopidogrel Bisulfate (Clopidogrel) 75 Mg Tablet, 75 MG PO DAILY, (Reported) Entered as Reported by: GARCÍA DELGADO on 12/17/18 1233 Cyclobenzaprine HCl (Cyclobenzaprine HCl) 10 Mg Tablet, 10 MG PO HS PRN for MUSCLE SPASMS, (Reported) Entered as Reported by: GARCÍA DELGADO on 12/17/18 1233 Doxycycline Hyclate (Doxycycline Hyclate) 100 Mg Tablet, 100 MG PO BID Prescribed by: PRICILA MARTINEZ on 07/27/221920 Finasteride (Finasteride) 5 Mg Tablet, 5 MG PO DAILY, (Reported) Entered as Reported by: GARCÍA DELGADO on 12/17/18 123 Furosemide (Lasix) 40 Mg Tablet, 40 MG PO DAILY Prescribed by: PRICILA MARTINEZ on 07/27/221920 Gabapentin (Gabapentin) 300 Mg/6 Ml Solution, 300 MG PO BID, (Reported) Entered as Reported by: GARCÍA DELGADO on 12/17/18 1224 Hydrochlorothiazide (Hydrochlorothiazide) 25 Mg Tablet, 25 MG PO DAILY, (Reported) Entered as Reported by: GARCÍA DELGADO on 12/17/18 1224 Pantoprazole Sodium (Pantoprazole Sodium) 20 Mg Tablet.dr, 20 MG PO DAILY, (Reported) Entered as Reported by: GARCÍA DELGADO on 12/17/18 1233 Potassium Chloride (Potassium Chloride) 20 Meq Tablet.er, 20 MEQ PO DAILY Prescribed by: PRICILA MARTINEZ on 07/27/221920 Prednisone (Prednisone) 20 Mg Tab, 40 MG PO DAILY Prescribed by: BRADY WEATHERS on 08/04/19 1742 Prednisone (Prednisone) 20 Mg Tab, 40 MG PO DAILY Prescribed by: URI TIMMONS on 08/24/22 1549 Tamsulosin HCl (Flomax) 0.4 Mg Cap, 0.4 MG PO BID, (Reported) Entered as Reported by: GARCÍA DELGADO on 12/17/18 1233 Review of Systems Review of Systems Constitutional: No chills, No fever; malaise, weakness EENTM: no symptoms reported Respiratory: dyspnea on exertion, short of breath Cardiovascular: No chest pain, No palpitations Gastrointestinal: no symptoms reported Genitourinary: no symptoms reported Musculoskeletal: no symptoms reported Skin: no symptoms reported Psychiatric/Neurological: No Symptoms Reported Past Egnbwbe-Hzdycv-Bkrynv Hx Immunizations Up To Date First/Initial COVID19 Vaccinat: NO Past Medical History Surgeries: Yes (R ARM TRAUMA, MULTIPLE SURGERIES) Orthopedic Respiratory: Yes Sleep Apnea, COPD Cardiac: Yes (STENT ) High Cholesterol, Hypertension Neurological: Yes (CVA 03/2017--LEFT SIDE WEAKNESS--RESOLVED) Stroke Genitourinary: No Gastrointestinal: Yes Gastroesophageal Reflux Musculoskeletal: No Endocrine: Yes (OBESITY) Cancer: No Psychosocial: No Integumentary: No Blood Disorders: No Physical Exam Vital Signs Vital Signs - First Documented 08/24/22 08/24/22 13:50 15:15 Temp 37.6 Pulse 78 Resp 18 B/P (MAP) 126/73 (90) Pulse Ox 88 O2 Delivery Room Air O2 Flow Rate 3.00 Capillary Refill : Height, Weight, BMI Height: 5'6.00" Weight: 209lbs. 0.0oz. 94.039496fz; 43.00 BMI Method:Stated General Appearance: Chronically ill Neck: Normal Inspection, Non Tender Respiratory: No Accessory Muscle Use, No Respiratory Distress, Decreased Breath Sounds Cardiovascular: Regular Rate, Rhythm, Other (Bilateral lower extremity 2+ edema) Gastrointestinal: Non Tender, Soft Neurologic/Psychiatric: Alert, Oriented x3, No Motor/Sensory Deficits, Normal Mood/Affect, steam hand II-XII Norm as Tested Skin: Other (Chronic venous stasis changes) Progress/Results/Core Measures Suspected Sepsis SIRS Temperature: Pulse: Respiratory Rate: Laboratory Tests 08/24/22 14:18: White Blood Count 7.0 Blood Pressure / Mean: Laboratory Tests 08/24/22 14:18: Creatinine 0.89, Platelet Count 177, Total Bilirubin 0.7 Results/Orders Lab Results Laboratory Tests Test 08/24/22 14:18 Range/Units White Blood Count 7.0 4.3-11.0 10^3/uL Red Blood Count 5.63 H 4.30-5.52 10^6/uL Hemoglobin 16.9 13.3-17.7 g/dL Hematocrit 50 40-54 % Mean Corpuscular Volume 89 80-99 fL Mean Corpuscular Hemoglobin 30 25-34 pg Mean Corpuscular Hemoglobin Concent 34 32-36 g/dL Red Cell Distribution Width 12.8 10.0-14.5 % Platelet Count 177 130-400 10^3/uL Mean Platelet Volume 9.6 9.0-12.2 fL Immature Granulocyte % (Auto) 0 % Neutrophils (%) (Auto) 70 42-75 % Lymphocytes (%) (Auto) 21 12-44 % Monocytes (%) (Auto) 7 0-12 % Eosinophils (%) (Auto) 1 0-10 % Basophils (%) (Auto) 0 0-10 % Neutrophils # (Auto) 4.9 1.8-7.8 10^3/uL Lymphocytes # (Auto) 1.5 1.0-4.0 10^3/uL Monocytes # (Auto) 0.5 0.0-1.0 10^3/uL Eosinophils # (Auto) 0.1 0.0-0.3 10^3/uL Basophils # (Auto) 0.0 0.0-0.1 10^3/uL Immature Granulocyte # (Auto) 0.0 0.0-0.1 10^3/uL Sodium Level 132 L 135-145 MMOL/L Potassium Level 3.9 3.6-5.0 MMOL/L Chloride Level 94 L 98-107 MMOL/L Carbon Dioxide Level 29 21-32 MMOL/L Anion Gap 9 5-14 MMOL/L Blood Urea Nitrogen 14 7-18 MG/DL Creatinine 0.89 0.60-1.30 MG/DL Estimat Glomerular Filtration Rate 95 BUN/Creatinine Ratio 16 Glucose Level 95 70-105 MG/DL Calcium Level 9.5 8.5-10.1 MG/DL Corrected Calcium 9.3 8.5-10.1 MG/DL Magnesium Level 1.9 1.6-2.4 MG/DL Total Bilirubin 0.7 0.1-1.0 MG/DL Aspartate Amino Transf (AST/SGOT) 18 5-34 U/L Alanine Aminotransferase (ALT/SGPT) 21 0-55 U/L Alkaline Phosphatase 65 40-136 U/L B-Type Natriuretic Peptide 40.4 <100.0 PG/ML Total Protein 7.6 6.4-8.2 GM/DL Albumin 4.2 3.2-4.5 GM/DL My Orders Orders - TIMMONS,URI L DO Bnp [place] (08/24/22 14:00) Cbc With Automated Diff (08/24/22 14:00) Comprehensive Metabolic Panel (08/24/22 14:00) Magnesium (08/24/22 14:00) Albuterol/Ipra Inhalation Soln (Duoneb I (08/24/22 14:00) Svn Small Volume Nebulizer (08/24/22 14:00) Chest Pa/Lat (2 View) (08/24/22 14:03) Dexamethasone Injection (Decadron Inje (08/24/22 15:45) Azithromycin Tablet (Zithromax Tablet) (08/24/22 15:45) Medications Given in ED Current Medications Medications Dose Ordered Sig/Shailesh Route Start Time Stop Time Status Last Admin Dose Admin Albuterol/ Ipratropium 3 ml ONCE ONCE INH 08/24/22 14:00 08/24/22 14:02 DC 08/24/22 15:15 3 ML Vital Signs/I&O 08/24/22 08/24/22 13:50 15:15 Temp 37.6 Pulse 78 Resp 18 B/P (MAP) 126/73 (90) Pulse Ox 88 95 O2 Delivery Room Air Nasal Cannula O2 Flow Rate 3.00 Capillary Refill : Progress Note : Progress Note Patient's chest x-ray was reviewed and shows maybe some bibasilar infiltrate. Patient did have some relief following DuoNeb. Patient's labs were reviewed that showed no acute white count or BNP. I suspect he has some underlying COPD and is having a mild exacerbation. Patient's labs otherwise showed no significant acute findings. Patient will be prescribed azithromycin and steroids. I recommended he uses home oxygen as needed. [facility]. Patient was stable and discharged. There is concerned about his ability to obtain his medications since he reports he has no money at this time. [facility] to [facility] to see if they will provide him with medications. ECG Comment no acute st changes or elevation Diagnostic Imaging Comments Date of Exam:08/24/22 CHEST PA/LAT (2 VIEW) INDICATION: Shortness of breath, hypertension. TECHNIQUE: Two-view chest at 02:18 p.m. CORRELATION STUDY: 07/27/2022. FINDINGS: Heart size remains enlarged. Mediastinum and vasculature overall are within normal limits. Lung nielson appearing hyperinflated. Some increased opacities at both lung bases are present, may be reflective of summation shadows with possibility of minimal atelectasis or infiltrate not excluded. Advanced degenerative changes of the thoracic spine with accentuated thoracic kyphosis. IMPRESSION: 1. Question bibasilar infiltrate-like opacities. Reviewed: Reviewed by Me, Reviewed/Discussed Departure Impression Primary Impression: Pneumonia Qualified Codes: J18.9 - Pneumonia, unspecified organism Disposition: HOME, SELF-CARE Condition: Stable Departure-Patient Inst. Referrals: LOAN RESENDEZ (PCP/Family) Primary Care Physician Patient Instructions: Pneumonia, Adult ED Scripts Prednisone (Prednisone) 20 Mg Tab 40 MG PO DAILY, #6 TAB 0 Refills . Prov: URI TIMMONS DO 08/24/22 Azithromycin (Azithromycin) 250 Mg Tablet 250 MG PO UD, #6 TAB TAKE 2 TABLETS ON DAY ONE THEN TAKE 1 TABLET DAILY FOR FOUR MORE DAYS. Prov: URI TIMMONS DO 08/24/22 URI TIMMONS DO Aug 24, 2022 14:00
[2022-08-24 14:25] LABS: BASOPHILS % (AUTO) 0 % (0-10); EOSINOPHILS # (AUTO) 0.1 10^3/uL (0.0-0.3); EOSINOPHILS % (AUTO) 1 % (0-10); HEMATOCRIT 50 % (40-54); HEMOGLOBIN 16.9 g/dL (13.3-17.7); LYMPHOCYTES # (AUTO) 1.5 10^3/uL (1.0-4.0); LYMPHOCYTES % (AUTO) 21 % (12-44); MEAN CORPUSCULAR HEMOGLOBIN 30 pg (25-34); MEAN CORPUSCULAR HGB CONC 34 g/dL (32-36); MEAN CORPUSCULAR VOLUME 89 fL (80-99); MEAN PLATELET VOLUME 9.6 fL (9.0-12.2); MONOCYTES # (AUTO) 0.5 10^3/uL (0.0-1.0); MONOCYTES % (AUTO) 7 % (0-12); NEUTROPHILS # (AUTO) 4.9 10^3/uL (1.8-7.8); NEUTROPHILS % (AUTO) 70 % (42-75); PLATELET COUNT 177 10^3/uL (130-400)
[2022-08-24 14:38] LABS: ALBUMIN 4.2 GM/DL (3.2-4.5); POTASSIUM 3.9 MMOL/L (3.6-5.0)
[2022-08-24 14:39] LABS: CALCIUM 9.5 MG/DL (8.5-10.1)
[2022-08-24 14:40] LABS: TOTAL PROTEIN 7.6 GM/DL (6.4-8.2)
--- NOTE | 2022-08-24 14:40 | Diagnostic Imaging Report ---
INDICATION: Shortness of breath, hypertension. TECHNIQUE: Two-view chest at 02:18 p.m. CORRELATION STUDY: 07/27/2022. FINDINGS: Heart size remains enlarged. Mediastinum and vasculature overall are within normal limits. Lung nielson appearing hyperinflated. Some increased opacities at both lung bases are present, may be reflective of summation shadows with possibility of minimal atelectasis or infiltrate not excluded. Advanced degenerative changes of the thoracic spine with accentuated thoracic kyphosis. IMPRESSION: 1. Question bibasilar infiltrate-like opacities. Dictated by: Dictated on workstation # [id number]
[2022-08-24 14:42] LABS: BILIRUBIN,TOTAL 0.7 MG/DL (0.1-1.0)
[2022-08-24 14:44] LABS: CREATININE SERUM 0.89 MG/DL (0.60-1.30)
[2022-08-24 14:48] LABS: MAGNESIUM 1.9 MG/DL (1.6-2.4)
[2022-08-24] MEDS ORDERED: PRD20T PO ×2 (15:45→15:49)
[2022-08-24] MEDS ORDERED: AZIT250T12 PO ×2 (15:45→15:49)
[2022-08-24] MEDS ORDERED: AZITHROMYCIN 250 MG TAB (ZITHROMAX) PO ONE (15:45)
[2022-08-24 16:14] VITALS: BP 126/65
== END 2022-08-24 16:35 | disposition home or self-care (01) ==
LOC: EDUNIT# 13:42 → ER 13:44
DX: J18.9 Pneumonia, unspecified organism (principal); J44.9 Chronic obstructive pulmonary disease, unspecified; E66.9 Obesity, unspecified; Z68.41 Body mass index [BMI] 40.0-44.9, adult; Z28.310 Unvaccinated for COVID-19
CPT/HCPCS: 36415; 71046; 80053; 83735; 83880; 85025; 94640

== ENCOUNTER → 2022-09-24 | Outpatient (CLI) | payer OTHER | LOC: CARD 09:53 | PROVIDERS: ATTEND Internal Medicine Cardiovascular Disease | DX: I25.10 Atherosclerotic heart disease of native coronary artery without angina pectoris (principal); R06.09 Other forms of dyspnea | CPT/HCPCS: 93306 ==

== ENCOUNTER → 2022-09-25 | Outpatient (CLI) | payer OTHER ==
[~2022-09-25] VITALS: Ht 170 cm; Wt 136.0 kg
[~2022-09-25] MED LIST changes: +CATHETER FLUSH 10 ML SYR IVP PRN; +REGADENOSON 0.4 MG/5 ML SYR (LEXISCAN) IV ONE
[2022-09-25 09:18] VITALS: BP 175/103
--- NOTE | 2022-09-25 21:06 | STRESS TEST ---
DATE OF SERVICE: 09/25/2022 RESTING AND POST REGADENOSON TECHNETIUM-99M TETROFOSMIN SPECT CT IMAGING ORDERING PHYSICIAN: Samia Riddle APRN PRIMARY PHYSICIAN: Agatha Aguilar APRN CLINICAL DIAGNOSIS: Coronary artery disease. Baseline images were carried out after injection of 9.89 mCi of technetium-99m tetrofosmin. This was followed by 0.4 mg regadenoson and 29.2 mCi of technetium-99m tetrofosmin for stress imaging. The electrocardiogram showed sinus rhythm at baseline. Sinus arrhythmia was seen. Premature atrial and ventricular contractions were seen. These are infrequent and isolated. The patient noted shortness of breath following regadenoson infusion, which resolved in a few minutes. Review of images at rest and following stress shows somewhat patchy tracer uptake. This is seen both at rest and following regadenoson infusion. Gated images showed normal global left ventricular systolic function with normal regional wall motion. Left ventricular ejection fraction is calculated to be 74%. CONCLUSIONS: 1. No evidence of significant myocardial ischemia or infarction on this study. 2. Normal regional wall motion. 3. Normal global left ventricular systolic function with a calculated ejection fraction of 74%. Job ID: [id number] DocumentID: [id number] Dictated Date: 09/25/2022 18:30:51 [employer] Date: 09/25/2022 21:05:00 Dictated By: CAROLINE TIPTON MD; DIANA; FACP; FACC;
== END ==
LOC: CARD 07:40
PROVIDERS: ATTEND Nurse Practitioner Family
DX: I25.10 Atherosclerotic heart disease of native coronary artery without angina pectoris (principal); R06.09 Other forms of dyspnea
CPT/HCPCS: 78452; 93017